=== PATIENT | male | born 1985 | race African-American/Black ===

== ENCOUNTER 2018-07-18 16:31 | Emergency (ER) | payer OTHER ==
[~2018-07-18] VITALS: Ht 185.4 cm; Wt 108.9 kg
[2018-07-18] MEDS ORDERED: IV NORMAL SALINE 1000ML BAG 1,000 ML IV ONE ×2 (17:00→17:30)
[2018-07-18] MEDS ORDERED: FAMOTIDINE 20 MG/2 ML VIAL IVP ONE (17:00)
[2018-07-18] MEDS ORDERED: ONDANSETRON PF 4 MG/2 ML VIAL. IV ONE (17:00)
[2018-07-18 17:01] LABS: BASO % 0 % (0-3); EOS # 0.1 x10^3/uL (0.0-0.7); EOS % 1 % (0-3); HEMATOCRIT 46.3 % (39.0-53.0); HEMOGLOBIN 16.1 g/dL (13.0-17.5); LYMPH # 0.7 x10^3/uL (1.0-4.8); LYMPH % 5 % (24-48); MEAN CORPUSCULAR HEMOGLOBIN 29 pg (25-35); MEAN CORPUSCULAR HGB CONC 35 g/dL (31-37); MEAN CORPUSCULAR VOLUME 83 fL (79-100); MONO # 0.7 x10^3/uL (0.0-1.1); MONO % 6 % (0-9); NEUT # 10.7 x10^3uL (1.8-7.7); NEUT % 88 % (31-73); PLATELET COUNT 276 x10^3/uL (140-400); RED BLOOD COUNT 5.57 x10^6/uL (4.30-5.70); RED CELL DISTRIBUTION WIDTH 13.3 % (11.5-14.5); WHITE BLOOD COUNT 12.2 x10^3/uL (4.0-11.0)
[2018-07-18 17:02] LABS: BILIRUBIN,URINE NEGATIVE (NEG); COLOR,URINE AMBER; NITRITE,URINE NEGATIVE (NEG); PROTEIN,URINE NEGATIVE (NEG-TRACE)
[2018-07-18 17:05] LABS: CLARITY,URINE HAZY
[2018-07-18 17:06] LABS: BACTERIA,URINE 0 /HPF (0-FEW); RBC,URINE 0 /HPF (0-2); WBC,URINE OCC /HPF (0-4)
[2018-07-18 17:10] LABS: CALCIUM 8.9 mg/dL (8.5-10.1); CREATININE 1.2 mg/dL (0.7-1.3); GFR 70.2; POTASSIUM 3.6 mmol/L (3.5-5.1)
[2018-07-18 17:16] LABS: ALBUMIN 3.9 g/dL (3.4-5.0); ALBUMIN/GLOBULIN RATIO 1.1 (1.0-1.7); TOTAL BILIRUBIN 1.2 mg/dL (0.2-1.0); TOTAL PROTEIN 7.6 g/dL (6.4-8.2)
[2018-07-18 17:23] LABS: % ATYL 2 % (0-0); % BANDS 2 % (0-9); % LYMPHS 4 % (24-48); % MONOS 3 % (0-10); % SEGS 89 % (35-66); PLT ESTIMATE ADEQUATE (ADEQUATE)
[2018-07-18] MEDS ORDERED: CONTRAST GIVEN. MC PRN (17:30)
[2018-07-18] MEDS ORDERED: IOHEXOL 300 MG/ML 100ML VIAL. IV ONE (17:30)
--- NOTE | 2018-07-18 17:55 | PHYS DOC ---
Past Medical History Past Medical History: Hypertension Additional Past Surgical Histo: ORAL Alcohol Use: Heavy Drug Use: Marijuana Adult General Chief Complaint Chief Complaint: NAUSEA/VOMITING/DIARRHA HPI HPI Patient is a 32 year old male who presents with vomiting and diarrhea since 3: 15 this morning. Patient states he has not vomited for the last 5 hours but did have about dietary 20 minutes ago. He denies any blood in his vomit or diarrhea. He denies any black tarry stools. States he is nauseated and has some left mid abdominal pain. He denies fever or recent antibiotic use. He states last night he last ate some chips with queso at 8:30 PM. Patient states she's been trying to drink Gatorade and water. History of hypertension of which she is on medication for. Only rates pain a 3 out of 10. Review of Systems Review of Systems Constitutional: Denies fever or chills [] Eyes: Denies change in visual acuity, redness, or eye pain [] HENT: Denies nasal congestion or sore throat [] Respiratory: Denies cough or shortness of breath [] Cardiovascular: No additional information not addressed in HPI [] GI: abdominal pain, nausea, vomiting, diarrhea. Denies bloody stools : Denies dysuria or hematuria [] Musculoskeletal: Denies back pain or joint pain [] Integument: Denies rash or skin lesions [] Neurologic: Denies headache, focal weakness or sensory changes [] All other systems were reviewed and found to be within normal limits, except as documented in this note. Current Medications Current Medications Current Medications Medications (Trade) Dose Ordered Sig/Gema Start Time Stop Time Status Last Admin Dose Admin Famotidine (Pepcid Vial) 20 mg 1X ONCE 07/18/18 17:00 07/18/18 17:03 DC 07/18/18 17:12 20 MG Info (CONTRAST GIVEN -- Rx MONITORING) 1 each PRN DAILY PRN 07/18/18 17:30 07/20/18 17:29 Iohexol (Omnipaque 300 Mg/ml) 75 ml 1X ONCE 07/18/18 17:30 07/18/18 17:31 DC 07/18/18 17:40 75 ML Ondansetron HCl (Zofran) 4 mg 1X ONCE 07/18/18 17:00 07/18/18 17:03 DC 07/18/18 17:12 4 MG Sodium Chloride 1,000 ml @ 1,000 mls/hr 1X ONCE 07/18/18 17:30 07/18/18 18:29 Allergies Allergies Allergies Coded Allergies Type Severity Reaction Last Updated Verified cephalexin Allergy Intermediate 07/18/18 Yes Physical Exam Physical Exam Constitutional: Well developed, well nourished, no acute distress, non-toxic appearance. [] HENT: Normocephalic, atraumatic, bilateral external ears normal, oropharynx moist, no oral exudates, nose normal. [] Eyes: PERRLA, EOMI, conjunctiva normal, no discharge. [] Neck: Normal range of motion, no tenderness, supple, no stridor. [] Cardiovascular:Heart rate regular rhythm, no murmur [] Lungs & Thorax: Bilateral breath sounds clear to auscultation [] Abdomen: Bowel sounds normal, soft, left mid tenderness, no masses, no pulsatile masses. [] Skin: Warm, dry, no erythema, no rash. [] Back: No tenderness, no CVA tenderness. [] Extremities: No tenderness, no cyanosis, no clubbing, ROM intact, no edema. [] Neurologic: Alert and oriented X 3, normal motor function, normal sensory function, no focal deficits noted. [] Psychologic: Affect normal, judgement normal, mood normal. [] Current Patient Data Vital Signs Vital Signs Date Time Temp Pulse Resp B/P (MAP) Pulse Ox O2 Delivery O2 Flow Rate FiO2 07/18/18 17:01 98.6 98 25 140/87 (104) 97 Room Air 98.6 Lab Values Laboratory Tests Test 07/18/18 16:40 07/18/18 16:45 Urine Collection Type Unknown Urine Color [place] Urine Clarity Hazy Urine pH 6.0 Urine Specific [place] >=1.030 Urine Protein Negative mg/dL (NEG-TRACE) Urine Glucose (UA) Negative mg/dL (NEG) Urine Ketones (Stick) Negative mg/dL (NEG) Urine Blood Negative (NEG) Urine Nitrite Negative (NEG) Urine Bilirubin Negative (NEG) Urine Urobilinogen Dipstick 1.0 mg/dL (0.2 mg/dL) Urine Leukocyte Esterase Negative (NEG) Urine RBC 0 /HPF (0-2) Urine WBC Occ /HPF (0-4) Urine Bacteria 0 /HPF (0-FEW) Urine Mucus Marked /LPF White Blood Count 12.2 x10^3/uL (4.0-11.0) H Red Blood Count 5.57 x10^6/uL (4.30-5.70) Hemoglobin 16.1 g/dL (13.0-17.5) Hematocrit 46.3 % (39.0-53.0) Mean Corpuscular Volume 83 fL (79-100) Mean Corpuscular Hemoglobin 29 pg (25-35) Mean Corpuscular Hemoglobin Concent 35 g/dL (31-37) Red Cell Distribution Width 13.3 % (11.5-14.5) Platelet Count 276 x10^3/uL (140-400) Neutrophils (%) (Auto) 88 % (31-73) H Lymphocytes (%) (Auto) 5 % (24-48) L Monocytes (%) (Auto) 6 % (0-9) Eosinophils (%) (Auto) 1 % (0-3) Basophils (%) (Auto) 0 % (0-3) Neutrophils # (Auto) 10.7 x10^3uL (1.8-7.7) H Lymphocytes # (Auto) 0.7 x10^3/uL (1.0-4.8) L Monocytes # (Auto) 0.7 x10^3/uL (0.0-1.1) Eosinophils # (Auto) 0.1 x10^3/uL (0.0-0.7) Basophils # (Auto) 0.0 x10^3/uL (0.0-0.2) Segmented Neutrophils % 89 % (35-66) H Band Neutrophils % 2 % (0-9) Lymphocytes % 4 % (24-48) L Atypical Lymphocytes % (Manual) 2 % (0-0) H Monocytes % 3 % (0-10) Platelet Estimate Adequate (ADEQUATE) Sodium Level 139 mmol/L (136-145) Potassium Level 3.6 mmol/L (3.5-5.1) Chloride Level 100 mmol/L (98-107) Carbon Dioxide Level 30 mmol/L (21-32) Anion Gap 9 (6-14) Blood Urea Nitrogen 16 mg/dL (8-26) Creatinine 1.2 mg/dL (0.7-1.3) Estimated GFR (Cockcroft-Gault) 70.2 BUN/Creatinine Ratio 13 (6-20) Glucose Level 105 mg/dL (70-99) H Calcium Level 8.9 mg/dL (8.5-10.1) Total Bilirubin 1.2 mg/dL (0.2-1.0) H Aspartate Amino Transferase (AST) 26 U/L (15-37) Alanine Aminotransferase (ALT) 40 U/L (16-63) Alkaline Phosphatase 64 U/L (46-116) Total Protein 7.6 g/dL (6.4-8.2) Albumin 3.9 g/dL (3.4-5.0) Albumin/Globulin Ratio 1.1 (1.0-1.7) Lipase 87 U/L (73-393) Laboratory Tests 07/18/18 16:45 Laboratory Tests 07/18/18 16:45 EKG EKG [] Radiology/Procedures Radiology/Procedures [] Impressions: [facility] [address] [place], [place] [id number] IMAGING REPORT Signed PATIENT: EVAN RAWLS ACCOUNT: [id number] : 1985 LOCATION: ER AGE: 32 SEX: M EXAM STATUS: REG ER ORD. PHYSICIAN: RODOLFO STRONG APRN REASON: ABDOMINAL PAIN PROCEDURE: CT ABD PELV W/ IV CONTRST ONLY PQRS Compliance statement: One or more of the following individualized dose reduction techniques were utilized for this examination: 1. Automated exposure control. 2. Adjustment of the mA and/or kV according to patient size. 3. Use of iterative reconstruction technique. Indication:LOWER LEFT ABD AIN WITH NAUSEA, VOMITING AND DIARRHEA
OMNI 300 75ML TECHNIQUE: CT abdomen and pelvis with IV contrast with multiplanar reformats. COMPARISON: None FINDINGS: Heart is normal in size. No pericardial or pleural effusion. Clear lung bases. Liver, spleen, gallbladder, pancreas, adrenals and kidneys are within normal limits. No enlarged retroperitoneal or pelvic adenopathy. Shotty retroperitoneal lymph nodes nonspecific most likely reactive. No free pelvic fluid or ascites. No bowel obstruction. Appendix is normal in caliber. Fluid-filled small bowel loops are seen nonspecific. No pneumoperitoneum. Urinary bladder demonstrates no radiopaque stones. The prostate and seminal vesicles show no large mass. Terminal ileum is within normal limits. No suspicious bony lesion. IMPRESSION: 1. No bowel obstruction. Normal appendix. 2. No nephrolithiasis or hydronephrosis. 3. Nonspecific fluid-filled small bowel loops. Correlate with symptoms of diarrhea. Electronically signed by: Wai Reynolds DO (07/18/2018 6:14 PM) [facility] DICTATED and SIGNED BY: WAI REYNOLDS DO DATE: 07/18/181807 Course & Med Decision Making Course & Med Decision Making Patient is a 32 year old male who presents with vomiting and diarrhea since 3: 15 this morning. Patient states he has not vomited for the last 5 hours but did have about dietary 20 minutes ago. He denies any blood in his vomit or diarrhea. He denies any black tarry stools. States he is nauseated and has some left mid abdominal pain. He denies fever or recent antibiotic use. He states last night he last ate some chips with queso at 8:30 PM. Patient states she's been trying to drink Gatorade and water. History of hypertension of which she is on medication for. Only rates pain a 3 out of 10. HEENT is nonradiating and is sharp at times. Alert and oriented. Skin is pink warm and dry. Mucous membranes are moist. Speaks in clear full sentences. Abdomen is soft and nontender nondistended. Heart rate regular without murmur. Lungs are clear to auscultation all lobes. Bowel sounds are active. Patient denies chest pain, shortness of air, dizziness, headache, weaknesses, numbness, tingling, visual changes. He has no swelling in extremities. Walks with steady gait. Patient's blood work is unremarkable although he does have some dehydration. He is gotten 2 L of normal saline and Zofran. CT abdomen and pelvis shows 1. No bowel obstruction. Normal appendix. 2. No nephrolithiasis or hydronephrosis. 3. Nonspecific fluid-filled small bowel loops. Correlate with symptoms of diarrhea. Patient will be sent home with probable gastritis or viral gastric illness. He will need to push fluids and start upping his diet slowly from clear liquids. He is to follow-up with his primary care. Dragon Disclaimer Dragon Disclaimer This electronic medical record was generated, in whole or in part, using a voice recognition dictation system. Departure Departure Impression: Primary Impression: Nausea vomiting and diarrhea Disposition: 01 HOME, SELF-CARE Condition: STABLE Referrals: UNKNOWN PCP NAME (PCP) Patient Instructions: Diarrhea, Nausea and Vomiting Additional Instructions: Follow-up with primary care. Start having a clear liquid diet and slowly started eating solid foods. Drink plenty of fluids. Take medications as prescribed. Scripts Ondansetron (ONDANSETRON ODT) 4 Mg Tab.rapdis 4 MG PO BID PRN for NAUSEA/VOMITING, #20 TAB Prov: RODOLFO STRONG APRN 07/18/18 RODOLFO STRONG APRN Jul 18, 2018 17:55
--- NOTE | 2018-07-18 18:18 | RAD ---
PQRS Compliance statement: One or more of the following individualized dose reduction techniques were utilized for this examination: 1. Automated exposure control. 2. Adjustment of the mA and/or kV according to patient size. 3. Use of iterative reconstruction technique. Indication:LOWER LEFT ABD AIN WITH NAUSEA, VOMITING AND DIARRHEA
OMNI 300 75ML TECHNIQUE: CT abdomen and pelvis with IV contrast with multiplanar reformats. COMPARISON: None FINDINGS: Heart is normal in size. No pericardial or pleural effusion. Clear lung bases. Liver, spleen, gallbladder, pancreas, adrenals and kidneys are within normal limits. No enlarged retroperitoneal or pelvic adenopathy. Shotty retroperitoneal lymph nodes nonspecific most likely reactive. No free pelvic fluid or ascites. No bowel obstruction. Appendix is normal in caliber. Fluid-filled small bowel loops are seen nonspecific. No pneumoperitoneum. Urinary bladder demonstrates no radiopaque stones. The prostate and seminal vesicles show no large mass. Terminal ileum is within normal limits. No suspicious bony lesion. IMPRESSION: 1. No bowel obstruction. Normal appendix. 2. No nephrolithiasis or hydronephrosis. 3. Nonspecific fluid-filled small bowel loops. Correlate with symptoms of diarrhea. Electronically signed by: Wai Bo DO (07/18/2018 6:14 PM) [facility]
[2018-07-18] MEDS ORDERED: ONDA4TAB12 PO (18:25)
[2018-07-18 19:00] VITALS: BP 126/66
== END 2018-07-18 19:33 | disposition home or self-care (01) ==
LOC: ER 16:31
DX: R11.2 Nausea with vomiting, unspecified (principal); R19.7 Diarrhea, unspecified; E86.0 Dehydration; I10 Essential (primary) hypertension; F10.20 Alcohol dependence, uncomplicated; Y90.9 Presence of alcohol in blood, level not specified; Z88.1 Allergy status to other antibiotic agents
CPT/HCPCS: 36415; 74177; 80053; 81001; 83690; 85007; 85025; 96361; 96374; 96375; 99284; J2405; J3490; J7030; Q9967